=== PATIENT | male | born 1965 | race African-American/Black ===

== ENCOUNTER 2018-09-07 11:46 | Emergency (ER) | payer SELFPAY ==
[~2018-09-07] VITALS: Ht 188 cm; Wt 75.0 kg
[2018-09-07 12:17] VITALS: BP 123/90
== END 2018-09-07 13:28 | disposition home or self-care (01) ==
LOC: ER 13:23
DX: K04.7 Periapical abscess without sinus (principal); F17.200 Nicotine dependence, unspecified, uncomplicated; F12.10 Cannabis abuse, uncomplicated
CPT/HCPCS: 99283